=== PATIENT | male | born 1975 | race Two or more races ===

== ENCOUNTER 2021-04-09 07:54 | Outpatient (REF) | payer MEDICAID, OTHER, SELFPAY | END 2021-04-09 07:55 | disposition home or self-care (01) | LOC: HO.LAB 07:54 | PROVIDERS: Visit Provider Internal Medicine | DX: Z20.822 Contact with and (suspected) exposure to COVID-19 (principal) | CPT/HCPCS: C9803; U0003; U0005 ==